=== PATIENT | female | born 1970 | race Caucasian/White ===

== ENCOUNTER → 2018-07-07 14:29 | Outpatient (CLI) | payer BC, OTHER, SELFPAY ==
--- NOTE | 2018-07-07 14:40 | XR_ITS ---
XR foot wt bearing LT 3V HISTORY: ITS.REASON: Pain ORDERING PHYSICIAN: Maxine Guzman DPM PATIENT AGE: 47 years COMPARISON: None FINDINGS: No previous exams are available for comparison. There is a pin present within the distal shaft of the fifth metatarsal with an old fracture at this area. A dorsal three-pronged bone plate is present within the distal aspect of the first metatarsal with good alignment. 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 No lytic or blastic change. There is a small lucency at the distal and needle aspect of the proximal phalanx of the great toe which may also represent a small subarticular cyst. IMPRESSION: Postsurgical changes of the first and fifth metatarsals. No acute finding
--- NOTE | 2018-07-07 14:40 | XR_ITS ---
XR foot wt bearing RT 3V HISTORY: ITS.REASON: Pain ORDERING PHYSICIAN: Maxine Guzman DPM PATIENT AGE: 47 years COMPARISON: None FINDINGS: There are no previous exams available for comparison. There is a small screw oriented longitudinally into the distal shaft of the fifth metatarsal with an old healed fracture at this area. No abnormal lucency around the screw. The remaining foot has an unremarkable appearance. IMPRESSION: Old distal fifth metatarsal fracture status post ORIF with good alignment, no acute finding
== END ==
PROVIDERS: PCP Family Medicine; Visit Provider Podiatrist
DX: M79.672 Pain in left foot (principal)
CPT/HCPCS: 73630

== ENCOUNTER → 2018-07-13 15:19 | Outpatient (CLI) | payer BC, OTHER, SELFPAY ==
--- NOTE | 2018-07-13 15:41 | XR_ITS ---
XR chest 2V HISTORY: Former smoker ITS.REASON: PRIOR H/O NICOTINE DEPENDECE ORDERING PHYSICIAN: Maxine Guzman DPM PATIENT AGE: 47 years COMPARISON: None FINDINGS: The cardiomediastinal silhouette and pulmonary vascularity are within normal limits. The lungs are clear without infiltrates, suspicious nodules, or pleural effusions. There are minimal atelectatic or fibrotic changes in the left lung base at the CP angle No acute bony abnormalities. There is an anterior bone plate in the lower cervical spine IMPRESSION: Minimal left basilar atelectasis or fibrosis otherwise negative
[2018-07-13 16:17] LABS: Basophils # 0.1 K/mm3 (0-0.2); Basophils % 0.8 % (0.1-2.0); Eosinophils # 0.3 K/mm3 (0.0-0.4); Eosinophils % 4.1 % (0.1-12.0); Hematocrit 41.9 % (37.0-47.0); Hemoglobin 14.2 g/dL (12.2-16.2); Lymphocytes # 2.6 K/mm3 (0.7-4.5); Mean Corpuscular HGB Conc 33.8 g/dL (31.8-35.4); Mean Corpuscular Hemoglobin 32.3 pg (27.0-31.2); Mean Corpuscular Volume 95.5 fl (81-99); Mean Platelet Volume 8.2 fl (7.4-10.4); Monocytes # 0.3 K/mm3 (0.1-1.0); Monocytes % 4.2 % (1.7-9.3); Neutrophils # 2.9 K/mm3 (1.8-7.8); Neutrophils % 47.9 % (37.0-80.0); Platelet Count 265 K/mm3 (142-424); Red Blood Count 4.39 M/mm3 (4.20-5.40); Red Cell Distribution Width 12.1 % (11.5-17.5)
[2018-07-13 16:45] LABS: Blood Urea Nitrogen 18 mg/dL (7-18); Carbon Dioxide 28 mmol/L (21.0-32.0); Chloride 104 mmol/L (98-107); Creatinine,Serum 0.88 mg/dL (0.55-1.02); Estimated Glomerular Filt Rate 68 ml/min (>60); GFR (African American) 83 ML/MIN (>60); Glucose 86 mg/dL (74-106); Sodium 141 mmol/L (136-145)
== END ==
PROVIDERS: Visit Provider Podiatrist
DX: Z01.818 Encounter for other preprocedural examination (principal); M20.42 Other hammer toe(s) (acquired), left foot
CPT/HCPCS: 36415; 71046; 80048; 85025; 93005

== ENCOUNTER → 2018-07-30 15:20 | Outpatient (CLI) | payer BC, OTHER, SELFPAY ==
--- NOTE | 2018-07-30 15:23 | XR_ITS ---
XR foot wt bearing LT 3V HISTORY: Follow-up surgery/ORIF ITS.REASON: Post-op ORDERING PHYSICIAN: Maxine Guzman DPM PATIENT AGE: 47 years COMPARISON: 07/17/2018 FINDINGS: The pattern remains in place stabilizing the fifth toe with good alignment. No change in the dependent the distal aspect of the fifth metatarsal stabilizing an old fracture along with the dorsal staple within the first metatarsal. IMPRESSION: No change status post ORIF of the fifth toe
== END ==
PROVIDERS: PCP Family Medicine; Visit Provider Podiatrist
DX: Z98.890 Other specified postprocedural states (principal)
CPT/HCPCS: 73630

== ENCOUNTER → 2018-08-13 15:07 | Outpatient (CLI) | payer BC, OTHER, SELFPAY ==
--- NOTE | 2018-08-13 15:15 | XR_ITS ---
XR foot wt bearing LT 3V HISTORY: Follow-up surgery, pain ITS.REASON: post-op ORDERING PHYSICIAN: Maxine Guzman DPM PATIENT AGE: 47 years COMPARISON: None FINDINGS: There is been no change. AP and is present through the distal middle and proximal phalanx of the fifth toe with good alignment. There has been osteotomy at the PIP joint of the fourth and fifth toes. Dorsal staple is present at the first metatarsal distally and remains a pin within the distal aspect of the fifth metatarsal. IMPRESSION: Postsurgical changes as described above unchanged
== END ==
PROVIDERS: PCP Family Medicine; Visit Provider Podiatrist
DX: Z98.890 Other specified postprocedural states (principal); M79.672 Pain in left foot
CPT/HCPCS: 73630

== ENCOUNTER → 2018-09-22 15:20 | Outpatient (CLI) | payer BC, OTHER, SELFPAY ==
--- NOTE | 2018-09-22 15:24 | XR_ITS ---
XR foot wt bearing LT 3V HISTORY: Follow-up surgery ITS.REASON: Post-op ORDERING PHYSICIAN: Maxine Guzman DPM PATIENT AGE: 47 years COMPARISON: 08/13/2018 FINDINGS: The distal pin within the fifth toe is been removed. Status post osteotomy of the distal aspect of the proximal phalanx. No bony union evident at this region. Fifth metatarsal hand is noted with osteopenia distally. Plate is over the distal aspect of the first metatarsal distally. There remains good alignment. IMPRESSION: Postsurgical changes as described above
== END ==
PROVIDERS: PCP Family Medicine; Visit Provider Podiatrist
DX: M79.672 Pain in left foot (principal); Z98.890 Other specified postprocedural states
CPT/HCPCS: 73630

== ENCOUNTER → 2019-10-25 14:36 | Outpatient (CLI) | payer BC, SELFPAY ==
--- NOTE | 2019-10-25 14:36 | CT_ITS ---
PROCEDURE: CT SINUS WO CON CLINICAL HISTORY: sinusitis COMPARISON: No exams were available for comparison TECHNIQUE: Axial images obtained with sagittal and coronal reformats. All CT scans at the facility use one or more dose reduction, viz: automated exposure control, ma/kV adjustment per patient size (including targeted exams where dose is matched to indication, i.e. head), or iterative reconstruction technique. FINDINGS: There is mild mucosal thickening of the ethmoidal and the sphenoid sinuses. The ostiomeatal units are intact. The orbits are unremarkable. Nasal vomer is in a midline location. Mastoid air cells are well aerated. There are no bony abnormalities. IMPRESSION: Mild sinusitis, no fracture Dictated by: Jerry Stinson 10/25/2019 17:04 Electronically signed by Jerry Stinson in [facility] 10/25/2019 17:04
== END ==
PROVIDERS: PCP Family Medicine; Visit Provider Otolaryngology
DX: J34.2 Deviated nasal septum (principal); S09.93XA Unspecified injury of face, initial encounter
CPT/HCPCS: 70486